=== PATIENT | male | born 1970 | race Caucasian/White ===

== ENCOUNTER → 2017-10-23 | Outpatient (CLI) | payer BC ==
--- NOTE | 2017-10-23 12:31 | RAD ---
Indication: Chronic left leg pain. Technique: 3 views of the left shoulder Comparison: None Findings: No acute fracture or dislocation. Joint space narrowing noted at acromio clavicular joint. Glenohumeral joint within normal limits. Visualized left lung is clear. Impression: Mild acromioclavicular joint osteoarthritis.
--- NOTE | 2017-10-23 12:34 | RAD ---
Indication: Pain. Technique: AP and lateral views of the left tibia and fibula Comparison: None Findings: Status post ORIF of distal fibular fracture with plates and screws. Fourth screw from the top is not in the plate hole. Correlate with outside imaging if available. No acute fracture or dislocation. Ankle mortise is intact. No soft tissue abnormal mobility. Impression: As above.
== END | disposition home or self-care (01) ==
LOC: PMG 09:52
PROVIDERS: ATTEND Physician Assistant
DX: M19.012 Primary osteoarthritis, left shoulder (principal); M25.572 Pain in left ankle and joints of left foot; Z96.698 Presence of other orthopedic joint implants
CPT/HCPCS: 73030; 73590

== ENCOUNTER → 2018-04-20 | Outpatient (CLI) | payer BC ==
--- NOTE | 2018-04-20 13:56 | RAD ---
Right thumb, 3 views, 04/20/2018: HISTORY: Injury, pain There is mild spurring at the IP joint. 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 No acute fracture or dislocation is identified. IMPRESSION: No acute bony abnormality is detected. Electronically signed by: Selvin Abarca MD (04/20/2018 1:53 PM) [facility]
== END | disposition home or self-care (01) ==
LOC: PMG 09:53
PROVIDERS: ATTEND Physician Assistant
DX: M79.644 Pain in right finger(s) (principal)
CPT/HCPCS: 73140